=== PATIENT | male | born 1995 | race Two or more races ===

== ENCOUNTER 2018-09-18 21:08 | Emergency (ER) | payer OTHER ==
[2018-09-18 21:28] VITALS: BP 120/64; PULSE 76; TEMP 97.9; BMI 21.6
[2018-09-18] MEDS ORDERED: TRIAMCINOLONE ACET 40MG/1ML VIAL IM ONE (21:52)
[2018-09-18] MEDS ORDERED: diphenhydrAMINE HCL 25 MG CAPSULE (FP) PO ONE ×2 (21:52→21:58)
--- NOTE | 2018-09-18 21:58 | PDOC ---
History of Present Illness - General Chief Complaint: Allergic Reaction Stated Complaint: ALLERGIC REACTION Time Seen by Provider: 09/18/18 21:40 History Source: Patient Exam Limitations: No Limitations - History of Present Illness Initial Comments: 09/18/18 21:53 HISTORY OF PRESENT ILLNESS: This is a 23-year-old otherwise healthy male presents emergency department for evaluation of raised itchy rash to his upper extremities and trunk starting yesterday. Patient denies any change in soaps, shampoos, cosmetics, perfumes, conditioners, lotions, foods or medications. Patient reports he ate some pepperoni pizza but jalapenos last night and then developed a rash approximately 3 hours later. Patient works in a [employer] par[employer] and did not change any of his usual routines. Patient denies any shortness of breath, nausea, vomiting, difficulty breathing. No recent travel or sick contacts. PAST MEDICAL HISTORY: Denies past medical history SURGICAL HISTORY: Denies ALLERGIES: No known drug allergies REVIEW OF SYSTEMS General/Constitutional: Denies fever or chills. Denies weakness, weight change. HEENT: Denies change in vision. Denies ear pain or discharge. Denies sore throat. Cardiovascular: Denies chest pain or shortness of breath. Respiratory: Denies cough, wheezing, or hemoptysis. Gastrointestinal: Denies nausea, vomiting, diarrhea or constipation. Denies rectal bleeding. Genitourinary: Denies dysuria, frequency, or change in urination. Musculoskeletal: Denies joint or muscle swelling or pain. Denies neck or back pain. Skin and breasts: see HPI Neurologic: Denies headache, vertigo, loss of consciousness, or loss of sensation. Psychiatric: Denies depression or anxiety. Endocrine: Denies increased thirst. Denies abnormal weight change. Hematologic/Lymphatic: Denies anemia, easy bleeding, or history of blood clots. Allergic/Immunologic: Denies hives or skin allergy. Denies latex allergy. PHYSICAL EXAM General Appearance: Well-appearing, appropriately dressed. No apparent distress , no intoxication. HEENT: EOMI, PERRLA, normal ENT inspection, normal voice, TMs normal, pharynx normal. No conjunctival pallor. No photophobia, scleral icterus. Neck: Supple. Trachea midline. No tenderness, rigidity, carotid bruit, stridor , lymphadenopathy, or thyromegaly. Respiratory/Chest: Lungs CTAB. No shortness of breath, chest tenderness, respiratory distress, accessory muscle use. No crackles, rales, rhonchi, stridor , wheezing, dullness Cardiovascular: RRR. S1, S2. No JVD, murmur, bradycardia, tachycardia. Vascular Pulses: Dorsalis-Pedis (R): 2+, Dorsalis-Pedis (L): 2+ Gastrointestinal/Abdominal: Normal bowel sounds. Abdomen soft, non-distended. No tenderness or rebound tenderness. No organomegaly, pulsatile mass, guarding, hernia, hepatomegaly, splenomegaly. Lymphatic: No adenopathy, tenderness. Musculoskeletal/Extremities: Normal inspection. FROM of all extremities, normal capillary refill. Pelvis Stable. No CVA tenderness. No tenderness to extremities, pedal edema, swelling, erythema or deformity. Integumentary: Scattered raised erythematous wheals presents to chest, lower back, bilateral upper extremities. Neurologic: oxidized finish plater II-XII intact. Fully oriented, alert. Appropriate mood/affect. Motor strength 5/5. No appreciable EOM palsy, facial droop or sensory deficit. Past History - Past Medical History Allergies/Adverse Reactions: Allergies Allergy/AdvReac Type Severity Reaction Status Date / Time No Known Allergies Allergy Verified 09/18/18 21:28 Home Medications: Ambulatory Orders Methylprednisolone [Medrol Dose Avtar] 4 mg PO ASDIR #21 tablet 09/18/18 COPD: No - Suicide/Smoking/Psychosocial Hx Smoking History: Never smoked *Physical Exam - Vital Signs Last Vital Signs Temp Pulse Resp BP Pulse Ox 97.9 F 76 18 120/64 99 09/18/18 21:25 09/18/18 21:25 09/18/18 21:25 09/18/18 21:25 09/18/18 21:25 Moderate Sedation - Procedure Monitoring Vital Signs: Procedure Monitoring Vital Signs Temperature 97.9 F 09/18/18 21:25 Pulse Rate 76 09/18/18 21:25 Respiratory Rate 18 09/18/18 21:25 Blood Pressure 120/64 09/18/18 21:25 O2 Sat by Pulse Oximetry (%) 99 09/18/18 21:25 Medical Decision Making - Medical Decision Making 09/18/18 21:56 A/P: 23-year-old with wheals to chest lower back and upper extremities Unable to identify any eliciting, aggravating factors No drooling present No edema present in oral cavity No stridor noted Lungs clear to auscultation bilaterally Benadryl 50 mg orally now Kenalog 40 mg IM Reassess 09/18/18 22:55 Itching is relieved at present. Patient wheels remain. I will discharge the patient home to follow-up with ENT for ALLERGY testing. We will give the patient a prescription for steroids and recommendations of been made to take antihistamines for itching relief. I discussed the physical exam findings, ancillary test results and final diagnoses with the patient. I answered all of the patient's questions. The patient was satisfied with the care received and felt comfortable with the discharge plan and treatment plan. The patient will call their primary care physician within 24 hours to arrange follow-up and will return to the Emergency Department with any new, persistent or worsening symptoms. *DC/Admit/Observation/Transfer Diagnosis at time of Disposition: Urticaria - Discharge Dispostion Disposition: HOME Condition at time of disposition: Stable Decision to Admit order: No - Prescriptions Prescriptions: Methylprednisolone [Medrol Dose Avtar] 4 mg PO ASDIR #21 tablet - Referrals Referrals: Savage Young MD [Staff Physician] - - Patient Instructions Additional Instructions: Rest, drink lots of fluids: Teas, water, soups Consider humidifier in room at night Lots of handwashing and good hygiene Continue [id number] medications for symptomatic relief- may use allergic eyedrops for itching I Continue antihistamines daily until seen by data warehouse developer; Zyrtec, Claritin, Lona during the daytime and Benadryl at nighttime as will make sleepy Tylenol or Motrin for fever and pain Followup with private physician in one to 2 days as needed Consider following up with an data warehouse developer/executive wellness programs director for skin testing and possible allergy shots Return to emergency department for worsened symptoms, fevers, dehydration - Post Discharge Activity
== END 2018-09-18 22:59 | disposition home or self-care (01) ==
LOC: JERFT 21:08
PROC: 3E0233Z Introduction of Anti-inflammatory into Muscle, Percutaneous Approach (ICD-10-PCS; principal; 2018-09-18)
DX: L50.9 Urticaria, unspecified (principal)
CPT/HCPCS: 96372; 99281-25